=== PATIENT | female | born 1970 | race Caucasian/White ===

== ENCOUNTER → 2022-04-09 12:54 | Outpatient (CLI) | payer BC, SELFPAY | PROVIDERS: PCP Internal Medicine; Referring Provider Internal Medicine; Visit Provider Family Medicine | DX: T24.231A Burn of second degree of right lower leg, initial encounter (principal) | CPT/HCPCS: 16020; 99204; 99213 ==

== ENCOUNTER → 2022-04-16 09:32 | Outpatient (CLI) | payer BC, SELFPAY | PROVIDERS: PCP Internal Medicine; Referring Provider Internal Medicine; Visit Provider Family Medicine | DX: T24.231A Burn of second degree of right lower leg, initial encounter (principal) | CPT/HCPCS: 16020 ==

== ENCOUNTER → 2022-04-23 15:14 | Outpatient (CLI) | payer BC, SELFPAY | PROVIDERS: PCP Internal Medicine; Referring Provider Internal Medicine; Visit Provider Family Medicine | DX: T24.231A Burn of second degree of right lower leg, initial encounter (principal) | CPT/HCPCS: 16020 ==

== ENCOUNTER → 2022-05-07 08:39 | Outpatient (CLI) | payer BC, SELFPAY | PROVIDERS: PCP Internal Medicine; Referring Provider Internal Medicine; Visit Provider Family Medicine | DX: T24.231A Burn of second degree of right lower leg, initial encounter (principal) | CPT/HCPCS: 16020; 99213 ==

== ENCOUNTER → 2022-05-21 08:32 | Outpatient (CLI) | payer BC, SELFPAY | PROVIDERS: PCP Internal Medicine; Referring Provider Internal Medicine; Visit Provider Family Medicine | DX: T24.231A Burn of second degree of right lower leg, initial encounter (principal) | CPT/HCPCS: 16020 ==

== ENCOUNTER → 2022-06-04 09:51 | Outpatient (CLI) | payer BC, SELFPAY | PROVIDERS: PCP Internal Medicine; Referring Provider Internal Medicine; Visit Provider Family Medicine | DX: T24.231D Burn of second degree of right lower leg, subsequent encounter (principal) | CPT/HCPCS: 99212; 99213 ==